=== PATIENT | male | born 1960 | race Caucasian/White ===

== ENCOUNTER 2018-11-16 11:51 | Day surgery (SDC) | payer BC ==
[~2018-11-16] VITALS: Ht 188 cm; Wt 112.9 kg
[~2018-11-16 11:51] MED LIST: DIAZEPAM5 MG PO; OMEPRAZOLE20 MG PO; ONDANSETRON ODT8 MG; PROPRANOLOL HCL20 MG PO; SUDOGEST60 MG PO
--- NOTE | 2018-11-16 13:45 | NUR ---
11/16/18 1345 Elva Kaur SN 1330- PT ARRIVES IN PACU. PT LYING LEFT LATERAL RESTING WITH EYES CLOSED. PT RESPONDS TO VERBAL AND TACTILE STIMULI. RESPS EVEN AND UNLABORED. 02 SAT HIGH 90S ON 2 L VIA NC. PT UNABLE TO VERBALIZE PAIN RATING OR DIZZINESS AND NAUSEA AT THIS TIME. 1338-PT LYING IN BED. REPOSITIONED TO SIDE INDEPENDENTLY. TOLERATING WELL. RESPS EVEN AND UNLABORED. 02 SAT HIGH 90S ON 2L VIA NC. PT DENIES PAIN NAUSEA AND DIZZINESS AT THIS TIME.
--- NOTE | 2018-11-16 19:22 | OR ---
[facility] [address], [place] [address] Signed DATE OF OPERATION: 11/16/2018 SURGEON: Elisa Pope MD PREOPERATIVE DIAGNOSIS: History of adenomatous polyp of sigmoid, 3 years ago. POSTOPERATIVE DIAGNOSES: 1. No evidence of recurrent polyps. 2. Diverticular changes in sigmoid and left colon. 3. Small hemangioma in ascending colon. PROCEDURE PERFORMED: Total colonoscopy to cecum. ANESTHESIA: Intravenous sedation, fentanyl 100 mcg, Versed 7 mg. INDICATION: This 58-year-old white man is a patient of Bonifacio Mendoza in [place], [place]. Three years ago, he underwent colonoscopy in [place] where he was found to have a pedunculated polyp in the sigmoid, which was excised. The patient is symptom free, but surveillance colonoscopy has been recommended. The risks of bleeding, infection, and perforation related to colonoscopy were reviewed in detail. He understands and wished to proceed. FINDINGS: The prep was excellent. Complete colonoscopy was undertaken to the cecum without question. He had no sign of recurrent polyps, but did have diverticula of the sigmoid and left colon. The rectum was normal. There was a very small and unlikely important arteriovenous malformation of the ascending colon. DESCRIPTION OF PROCEDURE: The patient was brought to the endoscopy suite, placed in lateral decubitus position, and given intravenous sedation to the point of slurred speech and nystagmus. Full cardiopulmonary monitoring was undertaken. Digital rectal examination was normal. Olympus video colonoscope was passed in the rectum and manipulated throughout the colon noting diverticula in the sigmoid and left colon upon passage of the scope. There was a small arteriovenous malformation of the right colon which was photographed. It was not worrisome for bleeding in any way and it was left in situ. The scope was then advanced Electronically Signed By: ELISA POPE MD 11/16/18 1922 PATIENT NAME: JAZZ MCCLENDON OPERATIVE REPORT DATE OF : 64 REPORT #: [id number] PHYSICIAN: ELISA POPE MD PCP: LUCA PATEL MD REPORT IS CONFIDENTIAL AND NOT TO BE RELEASED WITHOUT AUTHORIZATION [facility] [address], [place] [address] Signed to the cecum. The ileocecal valve and appendiceal orifice were normal. Scope was withdrawn. A small AVM was once again seen in the right colon and further withdrawal of scope showed no sign of polyps, only diverticular changes as previously noted. Retroflexed view of the rectum was normal. Scope was removed and the patient was taken to recovery room in good condition. CONCLUDING DIAGNOSES: 1. Diverticulosis. 2. No evidence of recurrent polyps. 3. Small asymptomatic AVM, right colon. PLAN: Recommend a repeat colonoscopy in 5 years, sooner if clinically indicated. He will return to the ongoing care of Miguel Mendoza in [place]. MD TORSTEN Mora/YUSRA /[id number] cc: Bonifacio Mendoza MD Copies: BONIFACIO MENDOZA MD ~ Electronically Signed By: ELISA POPE MD 11/16/18 1922 PATIENT NAME: JAZZ MCCLENDON OPERATIVE REPORT DATE OF : 64 REPORT #: [id number] PHYSICIAN: ELISA POPE MD PCP: LUCA PATEL MD REPORT IS CONFIDENTIAL AND NOT TO BE RELEASED WITHOUT AUTHORIZATION
== END 2018-11-16 14:10 | disposition home or self-care (01) ==
LOC: DS 11:51 → OPS 11:51 → DS 13:00 → OPS 14:10
PROVIDERS: Surgery
PROC: 0DJD8ZZ Inspection of Lower Intestinal Tract, Via Natural or Artificial Opening Endoscopic (ICD-10-PCS; principal; 2018-11-16 13:00)
DX: Z12.11 Encounter for screening for malignant neoplasm of colon (principal); K57.30 Diverticulosis of large intestine without perforation or abscess without bleeding; D18.03 Hemangioma of intra-abdominal structures; Q27.33 Arteriovenous malformation of digestive system vessel; K21.9 Gastro-esophageal reflux disease without esophagitis; Z86.010 Personal history of colon polyps; Z86.711 Personal history of pulmonary embolism; Z98.890 Other specified postprocedural states
CPT/HCPCS: 99153; G0500; J2250; J3010; J7120